=== PATIENT | female | born 1980 | race Caucasian/White ===

== ENCOUNTER 2018-01-24 07:38 | Emergency (ER) | payer MEDICAID ==
--- NOTE | 2018-01-24 07:49 | ED Physician Documentation ---
History of Present Illness - Stated complaint Stated Complaint: CHEST PAIN - Chief complaint Chief Complaint: General - Additonal information Additional information: hx from pt 37 female healthy s/p hyt not preg recently moved from [place] to ED with chest and mid thoracic back pain since 630 AM states pain comes in waves, is sharp burning and severe recent cough and congestion also moved a swingset yesterday recent travel from [facility] and R calf pain Review of Systems Constitutional: denies: Fever, Chills Throat: denies: Sore throat Cardiac: reports: Chest pain / pressure Respiratory: reports: Cough. denies: Dyspnea GI: denies: Abdominal Pain, Nausea, Vomiting : denies: Now EGA Musculoskeletal: reports: Back pain, Extremity pain. denies: Extremity swelling Endocrine: denies: Easy bruising / bleeding Immunocompromised: denies: Immunocompromised PD PAST MEDICAL HISTORY - Present Medications Home Medications: Ambulatory Orders Medication Instructions Recorded Confirmed Dextroamphetamine/Amphetamine 10 mg PO 01/24/18 [Adderall 10 mg Tablet] busPIRone [Buspar] 5 mg PO BID 01/24/18 01/24/18 - Allergies Allergies/Adverse Reactions: Allergies Allergy/AdvReac Type Severity Reaction Status Date / Time No Known Drug Allergies Allergy Verified 01/24/18 07:47 PD ED PE NORMAL - Vitals Vital signs reviewed: Yes - General General: Alert and oriented X 3 - HEENT HEENT: PERRL - Neck Neck: Supple, no meningeal sign - Cardiac Cardiac: RRR, No murmur, Other (equal radial pulses) - Respiratory Respiratory: No respiratory distress, Clear bilaterally - Abdomen Abdomen: Soft, Non tender - Derm Derm: Normal color - Extremities Extremities: No deformity, No edema, No calf tenderness / cord - Neuro Neuro: Alert and oriented X 3 Results - Vitals Vitals: Vital Signs - 24 hr 01/24/18 01/24/18 07:45 08:55 Temperature 36.2 C L Heart Rate 60 66 Respiratory 14 16 Rate Blood Pressure 109/76 115/78 O2 Saturation 100 100 Oxygen O2 Source Room air - EKG (time done) 0745 Rate: Rate (enter#) (59) Rhythm: NSR [place]: Normal Intervals: Normal AR QRS: Normal Ischemia: Normal ST segments - Labs Labs: Laboratory Tests 01/24/18 01/24/18 01/24/18 08:00 08:00 08:00 WBC 8.8 RBC 4.28 Hgb 13.3 Hct 39.0 MCV 91.1 MCH 31.0 MCHC 34.0 RDW 12.7 Plt Count 297 MPV 8.0 Neut # (Auto) 5.5 Lymph # (Auto) 2.1 [place] # (Auto) 0.8 Eos # (Auto) 0.3 Baso # (Auto) 0.1 Absolute Nucleated RBC 0.00 Nucleated RBC % 0.0 D-Dimer < 200.0 L Sodium 137 Potassium 3.8 Chloride 103 Carbon Dioxide 27 Anion Gap 7.0 BUN 9 Creatinine 0.6 Estimated GFR (MDRD) 114 Glucose 97 Calcium 9.0 Total Bilirubin 0.6 AST 17 ALT 11 Alkaline Phosphatase 42 Troponin I Total Protein 7.4 Albumin 4.3 Globulin 3.1 Albumin/Globulin Ratio 1.4 Lipase 22 01/24/18 08:00 WBC RBC Hgb Hct MCV MCH MCHC RDW Plt Count MPV Neut # (Auto) Lymph # (Auto) [place] # (Auto) Eos # (Auto) Baso # (Auto) Absolute Nucleated RBC Nucleated RBC % D-Dimer Sodium Potassium Chloride Carbon Dioxide Anion Gap BUN Creatinine Estimated GFR (MDRD) Glucose Calcium Total Bilirubin AST ALT Alkaline Phosphatase Troponin I < 0.04 Total Protein Albumin Globulin Albumin/Globulin Ratio Lipase - Rads (name of study) CTA Radiology: See rad report (no PE no aneurysm no dissection no hemo or pneumo or infection or adenopthy) PD MEDICAL DECISION MAKING - Sepsis Event Vital Signs: Vital Signs - 24 hr 01/24/18 01/24/18 07:45 08:55 Temperature 36.2 C L Heart Rate 60 66 Respiratory 14 16 Rate Blood Pressure 109/76 115/78 O2 Saturation 100 100 Oxygen O2 Source Room air Departure - Departure Disposition: 01 Home, Self Care Clinical Impression: Chest pain Qualifiers: Chest pain type: unspecified Qualified Code(s): R07.9 - Chest pain, unspecified Back pain Qualifiers: Back pain location: thoracic back pain Chronicity: acute Back pain laterality: unspecified Qualified Code(s): M54.6 - Pain in thoracic spine Condition: Good Instructions: ED Chest Pain Atypical Unkn Cause, ED Neck Back Pain General Comments: All your tests came back fine. The EKG did not show signs of a heart attack The CT scan did not show blood clots, and aneurysm or a tear of your arota The blood work was all fine. So the pain may be muscular from moving he swingset. Given th reassuring work up, I think it is safe for you to go home. Recommend motrin and lidocaine patches as needed for the pain. Follow up with your PMD if not improving in 2 days Return to the ER if worse
[2018-01-24] MEDS ORDERED: KETOROLAC 60 MG/2 ML VIAL IVP STA (07:56)
[2018-01-24 08:20] LABS: BASOPHILS # (AUTO) 0.1 10^3/uL (0.0-0.1); BASOPHILS % (AUTO) 0.6 %; EOSINOPHILS # (AUTO) 0.3 10^3/uL (0.0-0.7); EOSINOPHILS % (AUTO) 3.9 %; HGB - HEMOGLOBIN 13.3 g/dL (12.0-16.0); LYMPHOCYTES # (AUTO) 2.1 10^3/uL (1.5-3.5); MEAN CORPUSCULAR VOLUME 91.1 fL (81.0-99.0); MONOCYTES # (AUTO) 0.8 10^3/uL (0.0-1.0); MONOCYTES % (AUTO) 8.8 %; NEUTROPHILS # (AUTO) 5.5 10^3/uL (1.5-6.6); NEUTROPHILS % (AUTO) 62.7 %; PLT - PLATELET COUNT 297 10^3/uL (130-450); RED BLOOD COUNT 4.28 10^6/uL (4.20-5.40); RED CELL DISTRIBUTION WIDTH 12.7 % (12.0-15.0); WHITE BLOOD COUNT 8.8 x10^3/uL (4.8-10.8)
[2018-01-24 08:24] LABS: ALBUMIN 4.3 g/dL (3.2-5.5); ALBUMIN/GLOBULIN RATIO 1.4 (1.0-2.2); BILIRUBIN,TOTAL 0.6 mg/dL (0.2-1.0); CREATININE 0.6 mg/dL (0.4-1.0); TOTAL PROTEIN 7.4 g/dL (6.7-8.2)
[2018-01-24] MEDS ORDERED: IOPAMIDOL-300 100 ML VIAL ONE (09:09)
--- NOTE | 2018-01-24 09:44 | CT Report ---
Procedure Date: 01/24/2018 Accession Number: [id number] / [id number] Procedure: CT - Chest Angio (AORTA) CPT Code: FULL RESULT: EXAM: CTA CHEST EXAM DATE: 01/24/2018 09:26 AM. CLINICAL HISTORY: Sharp chest pain radiating to back. COMPARISON: None. TECHNIQUE: Following administration of ISOVUE 300 80mL, multiplanar 3D/MIP reconstruction of the thoracic aorta was performed. In accordance with CT protocol optimization, one or more of the following dose reduction techniques were utilized for this exam: automated exposure control, adjustment of mA and/or KV based on patient size, or use of iterative reconstructive technique. FINDINGS: Vascular Structures: No evidence of thoracic aortic dissection. Ascending aorta at the mid sinuses of Valsalva measures 3 cm. Maximal size of the mid ascending aorta measures 2.9 cm. Great vessels are unremarkable. Descending thoracic aorta is normal in caliber. No evidence of pulmonary embolus. Lungs/Pleura: Basilar scar/atelectasis. Calcified right lower lobe granuloma. No endobronchial obstruction. No pneumothorax or pleural effusion. No vascular congestion. No parenchymal cavities. Mediastinum: The visualized thyroid gland is unremarkable. No enlarged mediastinal or hilar lymph nodes. Heart size is normal. No mediastinal hematoma. No evidence of left atrial appendage thrombus. Upper Abdomen: Unremarkable. Other: No acute osseous abnormalities. No significant degenerative changes are identified. IMPRESSION: 1. No evidence of pulmonary embolus, aortic aneurysm or aortic dissection. 2. No acute consolidation. No endobronchial obstruction. No pleural effusions. 3. No thoracic adenopathy. 4. No acute osseous abnormalities. RADIA
[2018-01-24 10:13] VITALS: BP 102/83
[2018-01-24] MEDS ORDERED: IOPAMIDOL-300 100 ML VIAL IVP ONE (10:19)
== END 2018-01-24 10:13 | disposition home or self-care (01) ==
LOC: ED 07:38
DX: R07.9 Chest pain, unspecified (principal); M54.6 Pain in thoracic spine
CPT/HCPCS: 36415; 71275; 80053; 83690; 84484; 85025; 85379; 93005; 96374; 99283; 99284; Q9967

== ENCOUNTER 2018-01-31 12:07 | Emergency (ER) | payer MEDICAID ==
--- NOTE | 2018-01-31 12:45 | ED Physician Documentation ---
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 She has had a rheumatologic workup without pertinent findings. Over the last 2 weeks she has felt profoundly fatigued, has had some hot flashes and has been achy. Over the last 2 days has developed hematuria with some small clots and left-sided abdominal pain that is not severe. She has some urinary frequency with it although it is not bad as prior UTIs. No measured fevers.) Review of Systems Ten Systems: 10 systems reviewed and negative Constitutional: reports: Myalgias, Fatigue. denies: Fever, Chills Cardiac: denies: Chest pain / pressure, Palpitations Respiratory: denies: Dyspnea, Cough GI: reports: Abdominal Pain, Nausea. denies: Vomiting PD PAST MEDICAL HISTORY - Past Medical History Past Medical History: Yes - Past Surgical History Past Surgical History: Yes /[employer]: Hysterectomy - Present Medications Home Medications: Ambulatory Orders Medication Instructions Recorded Confirmed Sulfamethoxazole/Trimethoprim 1 each PO BID 7 Days tablet 01/31/18 [Sulfamethoxazole-Tmp Ds Tablet] - Allergies Allergies/Adverse Reactions: Allergies Allergy/AdvReac Type Severity Reaction Status Date / Time No Known Drug Allergies Allergy Verified 01/31/18 13:15 - Social History Does the pt smoke?: No Smoking Status: Never smoker Does the pt drink ETOH?: No - Immunizations Immunizations are current?: Yes PD ED PE NORMAL - Vitals Vital signs reviewed: Yes - General General: Alert and oriented X 3, No acute distress - HEENT HEENT: PERRL, EOMI, Pharynx benign - Neck Neck: Supple, no meningeal sign, No bony TTP - Cardiac Cardiac: RRR, No murmur - Respiratory Respiratory: No respiratory distress, Clear bilaterally - Abdomen Abdomen: Normal bowel sounds, Soft, Non tender - Extremities Extremities: No edema, No calf tenderness / cord - Neuro Neuro: Alert and oriented X 3, Normal speech - Psych Psych: Normal mood, Normal affect Results - Vitals Vitals: Vital Signs - 24 hr 01/31/18 01/31/18 12:19 13:41 Temperature 36.9 C 36.7 C Heart Rate 65 62 Respiratory 16 18 Rate Blood Pressure 115/77 102/79 O2 Saturation 100 99 Oxygen O2 Source Room air - Labs Labs: Laboratory Tests 01/31/18 12:45 Urine Color YELLOW Urine Clarity CLOUDY Urine pH 6.0 Ur Specific [place] <=1.005 Urine Protein NEGATIVE Urine Glucose (UA) NEGATIVE Urine Ketones NEGATIVE Urine Occult Blood LARGE H Urine Nitrite NEGATIVE Urine Bilirubin NEGATIVE Urine Urobilinogen 0.2 (NORMAL) Ur Leukocyte Esterase MODERATE H Urine RBC TNTC H Urine WBC >25 H Urine WBC Clumps PRESENT Ur Epithelial Cells FEW Transitional Ur Squamous Epith Cells MOD Squamous H Urine Bacteria Many H Ur Microscopic Review INDICATED Urine Culture Comments NOT INDICATED Urine HCG, Qual NEGATIVE PD MEDICAL DECISION MAKING - ED course ED course: 37-year-old woman with hematuria with clots and left-sided abdominal pain, workup suggests this is pyelonephritis. She is treated with Bactrim. - Sepsis Event Vital Signs: Vital Signs - 24 hr 01/31/18 01/31/18 12:19 13:41 Temperature 36.9 C 36.7 C Heart Rate 65 62 Respiratory 16 18 Rate Blood Pressure 115/77 102/79 O2 Saturation 100 99 Oxygen O2 Source Room air Departure - Departure Disposition: Home, Self Care Clinical Impression: Pyelonephritis Condition: Good Record reviewed to determine appropriate education?: Yes Instructions: ED Kidney Infec Female Prescriptions: Sulfamethoxazole/Trimethoprim [Sulfamethoxazole-Tmp Ds Tablet] 1 each PO BID 7 Days tablet Comments: We will culture your urine, the results should be done in 48-72 hours. If an antibiotic change is necessary we will call you. Return if worse in the meantime, especially if you develop increasing flank pain, fevers, or cannot keep down the medication. Your blood pressure was elevated today on check into the emergency department. This does not mean that you have hypertension, it is a common phenomenon to come to the emergency department and have elevated blood pressure. I recommend that you see your primary care physician within the week to have it rechecked when you are feeling better. Discharge Date/Time: 01/31/18 13:44
[2018-01-31 12:52] LABS: BILIRUBIN,URINE NEGATIVE (NEGATIVE); GLUCOSE, URINE (UA) NEGATIVE (NEGATIVE); KETONES,URINE (UA) NEGATIVE (NEGATIVE); LEUKOCYTE ESTERASE, URINE MODERATE (NEGATIVE); NITRITE,URINE NEGATIVE (NEGATIVE); OCCULT BLOOD,URINE LARGE (NEGATIVE); PROTEIN,URINE NEGATIVE (NEGATIVE); UROBILINOGEN,URINE 0.2 (NORMAL) E.U./dL (NORMAL)
[2018-01-31 12:55] LABS: CLARITY,URINE CLOUDY (CLEAR); HCG UR QUAL NEGATIVE
[2018-01-31 13:13] LABS: RBC,URINE TNTC /HPF (0-5); SQUAMOUS EPITHELIAL CELL,UR MOD Squamous (<= Few); WBC CLUMPS,URINE PRESENT
--- NOTE | 2018-01-31 13:20 | CT Report ---
Procedure Date: 01/31/2018 Accession Number: [id number] / [id number] Procedure: CT - Abdomen/Pelvis W/O CPT Code: FULL RESULT: EXAM: CT ABDOMEN AND PELVIS (CT KUB) EXAM DATE: 01/31/2018 01:08 PM. CLINICAL HISTORY: L flank pain, hematuria. COMPARISONS: None. TECHNIQUE: Routine axial helical CT imaging was performed through the abdomen and pelvis without IV contrast. Reconstructions: Coronal and sagittal. In accordance with CT protocol optimization, one or more of the following dose reduction techniques were utilized for this exam: automated exposure control, adjustment of mA and/or KV based on patient size, or use of iterative reconstructive technique. FINDINGS: Lung Bases: Unremarkable. Right Kidney/Ureter: No stones, hydronephrosis, or hydroureter. No perinephric fat stranding. Left Kidney/Ureter: No stones, hydronephrosis, or hydroureter. No perinephric fat stranding. Other Solid Organs: Noncontrast images of the solid organs are grossly unremarkable. Gallbladder/Bile Ducts: Unremarkable. Peritoneal Cavity: No free fluid, free air or tanisha adenopathy. Bowel is grossly unremarkable. Normal appendix. Pelvic Organs: Unremarkable urinary bladder. Absent uterus. Vasculature: Unremarkable. Other: None. IMPRESSION: No urinary tract stones or obstruction. RADIA
[2018-01-31] MEDS ORDERED: SULFAMETH/TRIMETH DS 800/160 MG TABLET PO STA (13:27)
[2018-01-31 13:42] VITALS: BP 102/79
[2018-02-01 08:31] LABS: BACTERIA,URINE Few /HPF (None Seen)
== END 2018-01-31 13:44 | disposition home or self-care (01) ==
LOC: ED 12:07
DX: N12 Tubulo-interstitial nephritis, not specified as acute or chronic (principal); R31.9 Hematuria, unspecified; R03.0 Elevated blood-pressure reading, without diagnosis of hypertension
CPT/HCPCS: 74176; 81001; 81025; 87086; 99283; 99284; A9270; 81003